=== PATIENT | male | born 2000 | race Caucasian/White ===

== ENCOUNTER 2022-07-14 01:43 | Emergency (ER) | payer BC, SELFPAY ==
[2022-07-14] MEDS ORDERED: Ondansetron PF 4 MG/2 ML Vial ONE (02:22)
== END 2022-07-14 03:10 | disposition home or self-care (01) ==
LOC: CSHERS 01:43
DX: F10.129 Alcohol abuse with intoxication, unspecified (principal)
CPT/HCPCS: 96374; J2405